=== PATIENT | male | born 1950 | race Caucasian/White ===

== ENCOUNTER → 2020-08-13 | Outpatient (CLI) | payer MEDICARE ==
--- NOTE | 2020-08-20 02:42 | ECWPNPC ---
PATIENT NAME: LAZARUS SUN : 1950 GENDER: MALE VISIT DATE: 08/13/2020 DISCHARGE DATE: 08/13/20 0000 VISIT LOCKED DATE TIME: PHYSICIAN: [employer] RESOURCE: [employer] REASON FOR APPOINTMENT 1. CERVICAL AND LOW BACK HISTORY OF PRESENT ILLNESS GENERAL: PERMISSION REQUESTED AND RECEIVED FROM PATIENT TO PERFORM TELEHEALTH VISIT. 70-YEAR-OLD MALE IN FOR ABHI DAVON CONSULT REGARDING CURRENT PAIN MEDICATION REGIMEN. PATIENT ADMITS TO CURRENTLY TAKING 1-1/2 TABLETS OF HIS 54/325 MG HYDROCODONE DAILY NEEDED FOR PAIN AND HE RECEIVED GOOD RESULTS FROM THIS. FALL RISK SCREENING: SCREENING : NO FALLS REPORTED IN THE LAST YEAR , : NO FALLS REPORTED IN THE LAST YEAR. PAIN SCREENING: PATIENT HAS A COMPLAINT OF ACUTE OR CHRONIC PAIN :YES LOCATION OF PAIN:NECK, LOW BACK INTENSITY OF PAIN (SCALE OF 1 TO 10):1 WHAT DOES YOUR PAIN FEEL LIKE:SHARP DURATION:MAINLY DURING THE NIGHT, ONLY WITH SPECIFIC ACTIVITIES PAIN IS INCREASED BY:ACTIVITIES PAIN IS DECREASED BY:USE OF PAIN MEDICATIONS, OTHERS HEAT NURSING NOTE: - - -. PAIN CENTER INTAKE QUESTIONS: DO YOU HAVE A HISTORY OF MRSA? :NO DO YOU TAKE A BLOOD THINNERS? :NO DO YOU HAVE ANY BLEEDING DISORDERS? :NO ANY NEW NUMBNESS OR WEAKNESS IN YOUR LEGS OR ARMS? :NO ANY PACEMAKER,DEFIBRILLATOR, OR DORSAL COLUMN STIMULATOR? :NO DO YOU HAVE ANY RASHES OR OPEN SORES? :NO ARE YOU ALLERGIC TO IV DYE? :NO ARE YOU DIABETIC? :NO ANY NEW PROBLEMS WITH YOUR MEDICATIONS? :NO HAVE YOU RECEIVED A VACCINE IN THE PAST 30 DAYS? :NO DO YOU PLAN TO RECEIVE A VACCINE IN THE NEXT 21 DAYS? :NO DO YOU NEED ANY PRESCRIPTION? :NO DO YOU TAKE ANY IMMUNOSUPPRESSIVE MEDICATIONS? :NO CURRENT MEDICATIONS TAKING IBUPROFEN 800 MG TABLET 1 TABLET WITH FOOD OR MILK NEEDED ORALLY THREE TIMES A DAY TAKING GLUCOSAMINE CHONDR 1500 COMPLX - CAPSULE DIRECTED ORALLY TAKING MELATONIN ER 10 MG TABLET EXTENDED RELEASE DIRECTED ORALLY TAKING BUDESONIDE 3 MG CAPSULE DELAYED RELEASE PARTICLES 2 CAPSULES ORALLY EVERY OTHER DAY TAKING LOSARTAN POTASSIUM 25 MG TABLET 1 TABLET ORALLY ONCE A DAY TAKING PROAIR HFA 108 (90 BASE) MCG/ACT AEROSOL SOLUTION 2 PUFFS NEEDED INHALATION QID PRN TAKING ALBUTEROL SULFATE HFA 108 (90 BASE) MCG/ACT AEROSOL SOLUTION 1 PUFF NEEDED INHALATION EVERY 4 HRS TAKING MONTELUKAST SODIUM 10 MG TABLET 1 TABLET ORALLY ONCE A DAY TAKING PROPRANOLOL HCL 10 MG TABLET 1 TABLET ORALLY ONCE A DAY TAKING CITALOPRAM HYDROBROMIDE 20 MG TABLET 1 TABLET ORALLY ONCE A DAY TAKING HYDROCODONE-ACETAMINOPHEN 5-325 MG TABLET 1 TABLET NEEDED ORALLY EVERY 6 HRS TAKING VITAMIN C 500 MG CAPSULE DIRECTED ORALLY TAKING MULTIVITAMIN - TABLET 1 TABLET ORALLY ONCE A DAY TAKING ASPIRIN ADULT LOW DOSE 81 MG TABLET DELAYED RELEASE 1 TABLET ORALLY ONCE A DAY TAKING ATORVASTATIN CALCIUM 20 MG TABLET 1 TABLET ORALLY ONCE A DAY NOT-TAKING BENADRYL ALLERGY 25 MG TABLET 1 TABLET AT BEDTIME NEEDED ORALLY ONCE A DAY NOT-TAKING OSTEO BI-FLEX REGULAR STRENGTH 250-200 MG TABLET 1 TABLET WITH A MEAL ORALLY ONCE A DAY NOT-TAKING TENIVAC 5-2 LFU INJECTABLE DIRECTED INTRAMUSCULAR MEDICATION LIST REVIEWED AND RECONCILED WITH THE PATIENT PAST MEDICAL HISTORY CORONARY ARTERY DISEASE COPD HYPERTENSION RAYNAUD PHENOMENON CERVICAL DJD LUMBAR DJD UTI CYCTITIS PROSTATITS BLADDER CALCULUS TOBACCO DEPENDENCE FAMILY HISTORY AORTIC ANEURYSM CHRONIC DIARRHEA DENTAL ABSCESS BURSITIS OF RIGHT SHOULDER CARDIOMYOPATHY ANEURYSM OF ASOENDING AORTA ALLERGIES N.K.D.A. SURGICAL HISTORY C-DIF 2009 CARPTAL TUNNEL ON BOTH HANDS 2010 OPEN HEART SURG 2011 COLONOSCOPY 07/2018 C/SPINE MRI 2019 BLADDER SURG 01/2017 FAMILY HISTORY FATHER: MOTHER: SIBLINGS: ALIVE SON(S): ALIVE DAUGHTER(S): ALIVE 1 SISTER(S) - HEALTHY. 1 SON(S) , 1 DAUGHTER(S) - HEALTHY. SOCIAL HISTORY GENERAL: TOBACCO USE ARE YOU A:FORMER SMOKER 3 YEARS HOW LONG HAS IT BEEN SINCE YOU LAST SMOKED?1-5 YEARS LATEX QUESTIONNAIRE LATEX ALLERGY : HAVE YOU EVER DEVELOPED ANY TYPE OF REACTION AFTER HANDLING LATEX PRODUCTS SUCH RUBBER GLOVES, CONDOMS, DIAPHRAGMS, BALLOONS, SOCKS, OR UNDERWEAR?NO LATEX ALLERGY : HAVE YOU EVER DEVELOPED ANY TYPE OF REACTION DURING OR AFTER DENTAL APPOINTMENT, VAGINAL/RECTAL EXAMINATION, SURGICAL PROCEDURE, OR ANY OTHER EXPOSURE?NO LATEX RISK : HAVE YOU EVER HAD ANY DIFFICULTY BREATHING OR HIVES AFTER EATING OR HANDLING ANY FRUITS, OR VEGETABLES; SUCH KIWI, BANANAS, STONE FRUITS, OR CHESTNUTSNO LATEX RISK : DO YOU HAVE A PREVIOUS PERSONAL HISTORY OF MORE THAN NINE SURGERIES, SPINA BIFIDA, OR REPEATED CATHERIZATIONS? NO LATEX RISK : ARE YOU FREQUENTLY EXPOSED TO LATEX PRODUCTS IN YOUR OCCUPATION?NO DATE ASKED : 08/13/2020 ALCOHOL USE: NO. 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 CHILLS NO . WEIGHT CHANGE OF UNKNOWN REASONS NO . GASTROENTEROLOGY: NEW UNEXPLAINABLE CHANGES IN BOWEL CONTROL NO . CONSTIPATION NO . GENITOURINARY: ANY NEW CHANGE IN BLADDER CONTROL? NO . NEUROLOGY: NEW ONSET DIZZINESS OR NEUROLOGICAL CHANGES NOT MENTIONED NO . NEW NUMBNESS OR PAIN PATTERNS NOT MENTIONED AND PERTINENT TO TODAY'S VISIT NO . CARDIOLOGY: NEW CHEST PRESSURE NO . PATIENT DENIES NO . RESPIRATORY: UNEXPLAINABLE COUGH NO . NEW SHORTNESS OF BREATH NO . EXAMINATION GENERAL EXAMINATION: GENERALNO ACUTE DISTRESS, WELL NOURISHED AND HYDRATED. PSYCHAPPROPRIATE MOOD AND AFFECT . ASSESSMENTS CERVICALGIA - M54.2 (PRIMARY) LOW BACK PAIN - M54.5 TREATMENT CERVICALGIA NOTES: 70-YEAR-OLD MALE IN FOR CONSULT REGARDING CURRENT PAIN MEDICATION REGIMEN. 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 FURTHER RECOMMENDED FOLLOW-UP WITH DR. DWYER. PATIENT HAS EXPRESSED UNDERSTANDING OF AND WAS IN AGREEMENT WITH TREATMENT PLAN. GIVEN TIME TO ASK QUESTIONS AND EXPRESS CONCERNS. DISPOSITION & COMMUNICATION FOLLOW UP DR. DWYER (REASON: CERVICALGIA AND LOW BACK PAIN) ELECTRONICALLY SIGNED BY BERT MEADOWS ON 08/14/2020 AT 10:06 AM EDT DISCLAIMER : THIS IS A VISIT SUMMARY EXTRACTED FROM THE [employer] CHART. IT IS NOT A COPY OF THE [employer] PROGRESS NOTE. JONO
== END ==
LOC: M PAIN 15:00
PROVIDERS: ATTEND Family Medicine
DX: M54.2 Cervicalgia (principal); M54.5 Low back pain; I25.10 Atherosclerotic heart disease of native coronary artery without angina pectoris; J44.9 Chronic obstructive pulmonary disease, unspecified; I10 Essential (primary) hypertension; Z87.891 Personal history of nicotine dependence; Z79.82 Long term (current) use of aspirin; Z79.891 Long term (current) use of opiate analgesic; Z79.899 Other long term (current) drug therapy